=== PATIENT | male | born 1955 | race Caucasian/White ===

== ENCOUNTER 2017-02-05 10:24 | Outpatient (CLI) | payer BC, OTHER ==
[2013-12-27 17:27] VITALS: O2SAT 96
== END 2017-02-05 10:25 | disposition home or self-care (01) ==
LOC: CONVCARE 10:24
PROVIDERS: ATTEND Orthopaedic Surgery
DX: S46.012A Strain of muscle(s) and tendon(s) of the rotator cuff of left shoulder, initial encounter (principal); M54.2 Cervicalgia; R20.0 Anesthesia of skin
CPT/HCPCS: 72040